=== PATIENT | male | born 1935 | race Caucasian/White ===

== ENCOUNTER → 2016-12-18 | Outpatient (CLI) | payer OTHER, BC ==
[~2016-12-18] MED LIST: ACCUNEB SO1.25 MG/1 INH; ACIDOPHILUS1 EAC5 PO; ACYCLOVIR 400400 MG PO; AFRIN15 ML NASAL; ALEVE220 MG PO; AMBIEN 5 MG TABL5 M1 PO; ASPIRIN EC325 M1 PO; ASPIRIN81 M2 PO; AUGMENTIN 875875 MG PO; AVAPRO300 MG PO; AVAPRO75 MG PO; B-COMPLEX PLUS1 EACH PO; BENADRYL ALLERG25 MG PO; BENADRYL25 MG PO; CEFTRIAXONE2 G1 IV; CHLORTHALIDONE25 MG PO; CO Q-10100 M1 PO; COQ-10100 MG PO; COZAAR 25 MG TA25 M2 PO; COZAAR 50 MG TA50 M1 PO; COZAAR 50 MG TA50 M2 PO; CQ 10 PO; CYCLOBENZAPRINE10 MG PO; DEPO-TESTO100 MG/1 M IM; DUONEB 2.5-0.5 M3 ML INH; FISH OIL 1,001000 M2 PO; FLEXERIL PO; FLOMAX0.4 MG PO; HYDROCHLOROTHIA50 MG PO; HYDROCODON-ACE1 EAC7 PO; HYDROCODONE-AP1 EAC6 PO; KEFLEX500 M1 PO; KEFLEX500 MG PO; LASIX 20 MG TAB20 MG PO; LEVAQUIN 500 M500 M2 PO; LEVOTHYROXIN0.025 MG PO; LEVOTHYROXINE0.2 M1 PO; LIVALO2 MG PO; LUTEIN10 MG PO; LUTEIN6 MG PO; MELATONIN 5 MG1 EAC1 PO; MELATONIN1 MG PO; MELATONIN3 MG PO; METFORMIN HCL500 MG PO; MOBIC15 MG PO; MUCINEX TA600 MG/TA2 PO; NABUMETONE 750750 M1 PO; NAPROSYN500 MG PO; NIACIN 100MG T100 M1 PO; NIACIN50 MG PO; NORCO 5-325 TA1 EACH PO; NORVASC 5 MG TAB5 MG PO; OMEGA 3-6-9 CO1 EACH PO; OMEGA-31000 M1 PO; OSELB75 PO; PERCOCET PO; PIOGLITAZONE30 MG PO; PLAVIX 75 MG TA75 M1 PO; POTASSIUM20 PO; PRAVACHOL20 MG PO; PREDNISONE 10 M10 M1 PO; PREDNISONE 10 M10 MG PO; PREDNISONE 5 MG5 M1 PO; PRILOSEC 10MG C10 M1 PO; PRILOSEC 20 MG20 MG PO; PROMETHAZINE/C118 ML PO; PROVENTIL HFA6.7 G1 INH; RELAFEN500 MG PO; RITALIN5 MG PO; SKELAXIN 800 M800 M1 PO; SLO-NIACIN250 MG PO; STOOL SOFTENER100 MG PO; SYMBICORT80 MCG/4.1 INH; VENTOLIN HFA 1818 GM INH; VITAMIN B-1100 M1 PO; VITAMIN C + RO500 MG PO; VITAMIN D1000 UNI1 PO; XALATAN2.5 ML OPHTHALMIC; XANAX 0.25 MG0.25 MG PO; XOPENEX 0.63 MG/3 M1 INH; ZOFRAN4 MG PO
== END ==
LOC: RAD 11:22
DX: M47.897 Other spondylosis, lumbosacral region (principal)

== ENCOUNTER → 2017-01-21 | Outpatient (CLI) | payer OTHER, BC ==
[~2017-01-21] VITALS: Ht 177.8 cm; Wt 68.6 kg
[~2017-01-21] MED LIST changes: +VOLTAREN GEL 1100 G1 TOP; +ZANAFLEX4 MG PO
--- NOTE | ~2017-01-21 | HPC ---
[facility] [place] [address] PAIN MANAGEMENT CONSULTATION Name: ELOINA TAPIA Room #: REG [facility] Cecy.#: [id number] Admission: 01/21/17 Attend Phys: Jackson Young DO Discharge: Date of : 33 Report #: [id number] THIS REPORT FOR: //name// CC: Jerrod Young HISTORY OF PRESENT ILLNESS: The patient is an 81-year-old gentleman typically treated for myofascial pain, axial back pain, SI joint dysfunction. His last visit was 12/20/2016. The patient is having some increasing low back pain. He is status post lumbar decompressive laminectomy. He was diagnosed with bilateral SI joint pain. He was given bilateral SI joint injections at that time. He returns to the pain clinic today noting that the SI joint injections afforded dramatic relief, in fact SI pain is essentially gone. He does, however, have some mid back pain, left thoracic paravertebral muscles. Notes that the current pain is problematic, when he sits and works on the bench. It is relatively quiescent at present, but if he tries to do any jewelry making, the pain becomes rate limiting. PHYSICAL EXAMINATION: Shows an 81-year-old gentleman, BMI is 21.7 kilograms per meter squared. Blood pressure is modestly elevated, systolic, 178/73, pulse 74, respirations 16. Very tender about T8 and T12 and the lumbar paravertebral muscles on the left and the overlying latissimus dorsi. Range of motion is limited to rotation. Lumbar flexion is good. SI joints are really unremarkable. Gait is tandem. ASSESSMENT: Myofascial pain in a gentleman with prior history of sacroiliac joint dysfunction, given sacroiliac joint injections at the last visit with good overall improvement, axial back pain requiring complex medication management. In the interval since we last saw him, he was admitted to the ER on 01/16/2017 noting that he had "smoked a joint" and apparently developed what appeared to be acute anxiety syndrome, was admitted with concern for chest pain, but ruled out from a cardiac standpoint. RECOMMENDATIONS: 1. We will trial some topical Voltaren gel (the patient is on Plavix for a history of CVA). 2. Tizanidine 4 mg half to one tablet 3 times a day for acute spasm, limit 45 tablets. We talked about doing sergio-chi or other range of motion or stretching type exercises, which will not cause any significant cardiac issues. 3. Trigger point injections x 2 today. PROCEDURE NOTE: Trigger point injections x 2, left low thoracic paravertebral muscle and overlying latissimus dorsi. PROCEDURE: After written informed consent was obtained, the patient placed in a prone position. Skin overlying the two discrete trigger points were cleansed with alcohol. Using a 25-gauge needle, approximately 20 mg triamcinolone plus [address] [address] PAIN MANAGEMENT CONSULTATION Name: ELOINA TAPIA CELENA Room #: REG [facility] Nery#: [id number] Admission: 01/21/17 Attend Phys: Jackson Young DO Discharge: Date of : 33 Report #: [id number] mL of 0.5% preservative-free bupivacaine plus 3 mL of 1.5% preservative-free Xylocaine with 1:200,000 epinephrine was injected into and around the discrete trigger points. Needle was removed. The area was cleansed, Band-Aids applied. The patient monitored for an appropriate period of time, told to use ice on the area today. Follow up as needed. <ELECTRONICALLY SIGNED> By: Jackson Young DO 01/23/17 0932 [id number] [id number] Jackson Young DO /nt
[2017-01-21 10:45] VITALS: BP 178/73
== END ==
LOC: PAIN
DX: M79.1 Myalgia (principal); Z87.891 Personal history of nicotine dependence; I10 Essential (primary) hypertension

== ENCOUNTER → 2017-02-22 | Outpatient (CLI) | payer OTHER, BC ==
[2017-02-22 13:19] LABS: CREATININE 1.1 mg/dL (0.7-1.3)
== END ==
LOC: MRI 12:40
PROVIDERS: Internal Medicine
DX: M47.892 Other spondylosis, cervical region (principal); J32.3 Chronic sphenoidal sinusitis

== ENCOUNTER → 2017-04-26 | Outpatient (CLI) | payer OTHER, BC ==
[~2017-04-26] VITALS: Ht 177.8 cm; Wt 67.5 kg
[~2017-04-26] MED LIST changes: +GATIFLOXACIN2.5 ML OP; +METHYLPHENIDATE5 MG PO; +PRED FORTE 1% EY5 M1 OP
--- NOTE | ~2017-04-26 | HPC ---
[facility] [address] [address] PAIN MANAGEMENT CONSULTATION Name: ELOINA TAPIA Room #: REG Kade Gabriel#: [id number] Admission: 04/26/17 Attend Phys: Jackson Young DO Discharge: Date of : 33 Report #: [id number] THIS REPORT FOR: //name// CC: Jerrod Young The patient is a very pleasant 81-year-old gentleman being treated for myofascial pain. He had trigger point injections in January 21 with excellent improvement of his axial back pain. We suggested the tizanidine, but he stopped this. He is doing some sergio-chi and range of motion. He tells me that while he had excellent relief with the trigger point injections, pain is beginning to recur, it is bilateral low back, right greater than left. Pain is "11" on VAS with activity . He uses ice with some efficacy. PHYSICAL EXAMINATION: Shows pleasant 81-year-old gentleman, BMI is 21.4 kilograms per meter squared. Vital signs stable as noted in the EMR. Does not use tobacco products. Rises from chair easily, has discrete trigger points in the bilateral gluteus medius and right lumbar paravertebral muscles. After discussion with the patient, we elected to proceed with trigger point injections today. Continue to ice and stretch as able. PROCEDURE NOTE: Trigger point injections times 3. PROCEDURE: After written informed consent was obtained, the patient was placed in the prone position. Skin overlying the trigger points was cleansed with alcohol, using a 25-gauge needle, 40 mg triamcinolone plus of 50:50 mix of 5 mL of 0.5% preservative-free bupivacaine plus 5 mL of 1.5% preservative-free Xylocaine with 1:200,000 epinephrine was injected equally amongst 3 discrete trigger point muscle groups, specific bilateral gluteus medius and right lower lumbar paravertebral muscles. Needle was removed. The area was cleansed, Band-Aids applied. The patient monitored for an appropriate period of time, discharged in good and stable condition. <ELECTRONICALLY SIGNED> By: Jackson Young DO 04/29/17 1427 1639 [id number] Jackson Young DO /nt
[2017-04-26 14:09] VITALS: BP 133/69
== END | disposition home or self-care (01) ==
LOC: PAIN 07:54
DX: M79.1 Myalgia (principal)

== ENCOUNTER → 2017-05-01 | Outpatient (CLI) | payer OTHER, BC ==
[~2017-05-01] VITALS: Ht 172.7 cm; Wt 66.7 kg
--- NOTE | ~2017-05-01 | HPC ---
[facility] [address] [address] PAIN MANAGEMENT CONSULTATION Name: ELOINA TAPIA [facility] [id number] Admission: 05/01/17 Attend Phys: Yaquelin De La Torre MD Discharge: Date of : 33 Report #: [id number] THIS REPORT FOR: //name// CC: Yaquelin Castillo MD DATE OF SERVICE: 05/01/2017 CHIEF COMPLAINT: Pain in the right low back and hip area. FOLLOWUP HISTORY: The patient is an 81-year-old gentleman who has been seen in the pain clinic because of myofascial pain. He underwent a series of trigger point injections and noted some improvement. At this juncture, he continues to have pain, which is more problematic and it radiates into his right hip. He is walking with a cane. He notes that movement is slow and painful. He has difficulty changing positions while lying in bed. He notes pain in the lower portion of his back, which radiates back into the hip area with certain activities of daily living. PHYSICAL EXAMINATION: GENERAL: The patient is walking with a cane. He walks with a slow antalgic gait. He does exhibit facial grimacing when going from a sitting to a standing position and standing to a sitting position, has similar seen when moving from his chair to the examination table. Blood pressure 170/80, pulse 64, respiratory rate 14, room air saturation 99%. Height 5 feet 8 inches. Weight 147 pounds, BMI is 22. The patient has pain with Bob maneuver which radiates pain into the posterior portion of his right hip. Left lateral decubitus position with pressure on the hips causes increased pain and discomfort in the right hip area. The patient will moves slowly from side to his stomach with increased pain and discomfort in the back in the hip area. Increased pain is noted with the right leg hanging in a deep tendon position with increased pain radiating down into his back. IMPRESSION: 1. Low back pain consistent with sacroiliac joint dysfunction. 2. History of myofascial pain. 3. History of lumbar radicular pain status post back surgery. RECOMMENDATIONS: We discussed treatment options with the patient. Risks and benefits of a SI joint injection were discussed. Possible complications were reviewed. The patient elects to proceed. PROCEDURE NOTE: The patient was helped into position on the fluoroscopy table. His back was sterilely prepped with a chlorhexidine solution, which was allowed to dry. A 25-gauge needle was then advanced into the area of the right SI [address] [address] PAIN MANAGEMENT CONSULTATION Name: ELOINA TAPIA DALLAS Room #: REG [facility]#: [id number] Admission: 05/01/17 Attend Phys: Yaquelin De La Torre MD Discharge: Date of : 33 Report #: [id number] joint. 1% lidocaine was infiltrated. A 20-gauge spinal needle was then advanced into the appropriate placement. A total of 80 mg Depo-Medrol with 6 mL of 0.5% bupivacaine was injected. The patient's pain decreased from 10-2 at the time of his discharge. He will call us if he has any complications or concerns. He was able to stand for an appropriate amount of time on his right leg, indicating appropriate muscle strength. A total of 15 seconds fluoroscopy time was used. <ELECTRONICALLY SIGNED> By: Yaquelin De La Torre MD 05/02/17 0824 1427 1618 Yaquelin De La Torre MD /nt
[2017-05-01 11:24] VITALS: BP 170/80
== END | disposition home or self-care (01) ==
LOC: PAIN 09:43
DX: M53.3 Sacrococcygeal disorders, not elsewhere classified (principal); M54.16 Radiculopathy, lumbar region; M79.1 Myalgia; I10 Essential (primary) hypertension; J45.909 Unspecified asthma, uncomplicated; F41.8 Other specified anxiety disorders; Z79.899 Other long term (current) drug therapy; Z98.890 Other specified postprocedural states; Z88.8 Allergy status to other drugs, medicaments and biological substances

== ENCOUNTER → 2017-07-08 | Outpatient (CLI) | payer OTHER, BC ==
--- NOTE | ~2017-07-08 | 2DMMODE ---
[facility] [place] [address] 2 D/M-MODE ECHOCARDIOGRAM Name: ELOINA TAPIA CELENA Room #: REG [facility]#: [id number] Admission: 07/08/17 Attend Phys: Jethro Campbell MD Discharge: Date of : 31 Date of Service: 07/08/17 1401 Report #: [id number] THIS REPORT FOR: //name// APPROVED REPORT Study performed: 07/08/2017 13:18:12 EXAM: Comprehensive 2D, Doppler, and color-flow Echocardiogram Patient Location: Out-Patient Status: routine BSA: 1.76 HR: 64 bpm BP: 115/66 mmHg Rhythm: Irregular Other Information Study Quality: Adequate Indications Aortic stenosis, CAD 2D Dimensions RVDd: 37.43 mm LVEF(%): 52.60 (>50%) IVSd: 12.37 (7-11mm) LVOT Diam: 20.83 (18-24mm) LVDd: 37.72 mm PWd: 11.95 (7-11mm) Ascending Ao: 28.65 (22-36mm) LVDs: 27.73 (25-40mm) Aortic Root: 31.61 mm Pierce's LVEF: 52.60 % Volumes Left Atrial Volume (Systole) Single Plane 4CH: 45.97 mL Single Plane 2CH: 56.33 mL Aortic Valve AoV Peak Erick.: 4.58 m/s AO Peak Gr.: 83.75 mmHg LVOT Max P.55 mmHg AO Mean Gr.: 47.64 mmHg AO V2 Mean: 3.25 m/s LVOT Max V: 0.94 m/s AO V2 VTI: 95.87 cm KAITLYNN Vmax: 0.70 cm2 Mitral Valve E/A Ratio: 0.8 [facility] [place] [address] 2 D/M-MODE ECHOCARDIOGRAM Name: ELOINA TAPIA DALLAS Room #: [facility]#: [id number] Admission: 07/08/17 Attend Phys: Jethro Campbell MD Discharge: Date of : 31 Date of Service: 07/08/17 1401 Report #: [id number] MV Decel. Time: 367.46 ms MV E Max Erick.: 0.79 m/s MV A Erick.: 1.02 m/s MV PHT: 106.56 ms IVRT: 78.43 ms Pulmonary Valve PV Peak Erick.: 1.19 m/s PV Peak Gr.: 5.62 mmHg Pulmonary Vein P Vein S: 0.59 m/s P Vein A: 0.27 m/s P Vein D: 0.26 m/s P Vein A Dur.: 92.3 msec P Vein S/D Ratio: 2.27 Tricuspid Valve TR Peak Erick.: 2.84 m/s RAP Estimate: 5.00 mmHg TR Peak Gr.: 32.31 mmHg PA Pressure: 37.00 mmHg Left Ventricle The left ventricle is normal size. There is normal LV segmental wall motion. Mild concentric left ventricular hypertrophy. Left ventricular systolic function is normal. LVEF is 60-65%. Mild diastolic dysfunction is present (impaired relaxation pattern). Right Ventricle The right ventricle is normal size. The right ventricular systolic function is normal. Atria Left atrium is mildly dilated. Right atrium is moderately dilated. Aortic Valve Aortic valve is heavily calcified. Trace aortic regurgitation. There is severe valvular aortic stenosis. Calculated aortic valve area is 0.7 cm2 with maximum pressure gradient of 84 mmHg and mean pressure gradient of 48 mmHg. Mitral Valve Moderate mitral annular calcification. Trace to mild mitral regurgitation. No evidence of mitral valve stenosis. Tricuspid Valve The tricuspid valve is normal in structure. Mild to moderate [address] [address] 2 D/M-MODE ECHOCARDIOGRAM Name: ELOINA TAPIA Room #: REG [facility]#: [id number] Admission: 07/08/17 Attend Phys: Jethro Campbell MD Discharge: Date of : 31 Date of Service: 07/08/17 1401 Report #: [id number] tricuspid regurgitation. Estimated PAP is 37mmHg. Pulmonic Valve The pulmonary valve is normal in structure. Trace pulmonic regurgitation. Great Vessels The aortic root is normal in size. The ascending aorta is normal in size. IVC is normal in size and collapses >50% with inspiration. Pericardium There is no pericardial effusion. <Conclusion> The left ventricle is normal size. Mild concentric left ventricular hypertrophy. Left ventricular systolic function is normal. Mild diastolic dysfunction is present (impaired relaxation pattern). Left atrium is mildly dilated. Right atrium is moderately dilated. There is severe valvular aortic stenosis. Calculated aortic valve area is 0.7 cm2 with maximum pressure gradient of 84 mmHg and mean pressure gradient of 48 mmHg. Moderate mitral annular calcification. Trace to mild mitral regurgitation. Mild to moderate tricuspid regurgitation. Estimated PAP is 37mmHg. <ELECTRONICALLY SIGNED> By: Jethro Campbell MD 07/08/171400 00 00 Jethro Campbell MD /INF
== END ==
LOC: CV 06-17 09:34
DX: I25.10 Atherosclerotic heart disease of native coronary artery without angina pectoris (principal); I35.0 Nonrheumatic aortic (valve) stenosis